=== PATIENT | male | born 1955 | race Caucasian/White ===

== ENCOUNTER → 2019-04-15 | Outpatient (CLI) | payer BC ==
[2019-04-15 14:20] LABS: African American GFR (CKD) >90 (>60 ml/min/1.73 sqM); Blood Urea Nitrogen 17 mg/dL (9-20)
--- NOTE | 2019-04-15 15:05 | CT ---
EXAMINATION TYPE: CT abdomen w con DATE OF EXAM: 04/15/2019 COMPARISON: None HISTORY: RUQ abdominal pain, burning stomach and diarrhea x [address] DLP: 1002.6 mGycm Automated exposure control for dose reduction was used. TECHNIQUE: Helical acquisition of images was performed from the lung bases through the top of iliac crest to include entire abdomen. CONTRAST: Performed with Oral Contrast and with IV Contrast, patient injected with 100 mL mL of Isovue 300. FINDINGS: LUNG BASES: No significant abnormality is appreciated. LIVER/GB: Mild diffuse intrahepatic biliary ductal dilatation and extrahepatic biliary ductal dilatat ion as detailed below. There is diffuse hypoattenuation of the hepatic parenchyma with relative spari ng of the medial left lobe near the fissure for the falciform ligament. Gallbladder is hydropic in si ze measuring 13.4 cm in longitudinal dimension. PANCREAS: There is a pancreatic head mass that is centrally cystic and measures approximately 2.6 x 2 .1 x 3.4 cm. A central cystic component measures 2.1 x 2.1 cm. The margins however are ill-defined an d there is downstream main pancreatic ductal dilatation throughout measuring up to 4 mm in the pancre atic body. There is also dilatation of the extrahepatic biliary system with common bile duct dilatati on of 1.0 cm. There is some surrounding fat stranding of the pancreatic head. There is abnormal adeno leonid with peripancreatic lymph nodes measuring 1.0 cm on image 32 and 9 mm on image 27. There is lac k of fat plane between the descending duodenum and pancreatic head. The mass abuts less than 180 degr ees of the SMV on image 35 and less than 180 degrees of the SMA on image 35. Difficult to evaluate fo r thrombus of the proximal superior mesenteric vein or portal venous confluence. Pancreatic calcifica tion from chronic pancreatitis is seen. SPLEEN: No significant abnormality is seen. ADRENALS: No significant abnormality is seen. KIDNEYS: There are bilateral nonobstructing renal calculi, approximately 4 on the left and approximat francisca 4 on the right with the largest measuring 4 mm. 2.3 cm left lower pole renal cyst is present. No hydronephrosis of either kidney. BOWEL: Diffuse wall thickening of the stomach is seen, partially related to incomplete distention. N o dilated large or small bowel. Calcified lymph node in the right lower quadrant on image 53 appears benign. Thickening of the descending duodenum and transverse duodenum is likely reactive. LYMPH NODES: Abnormal peripancreatic lymph nodes as detailed above. OSSEOUS STRUCTURES: Partial visualization of grade 1 anterolisthesis of L5 on S1 and bilateral pars intraarticularis defects. Intervertebral disc spacers seen at this level. Extensive multilevel degene rative change of the spine. Minimal retrolisthesis of L4 on L5 and L1 on L2. FREE AIR: No free air is visualized. OTHER: Abdominal aorta is of normal caliber and course. Minimal atheromatous change. IMPRESSION: 1. HIGHLY SUSPICIOUS PANCREATIC HEAD LESION. ALTHOUGH THIS IS CENTRALLY CYSTIC THERE IS HIGH SUSPICIO N FOR PANCREATIC ADENOCARCINOMA WITH CENTRAL NECROSIS THERE ARE ILL-DEFINED BORDERS AND INTRAHEPAT IC/EXTRAHEPATIC WELL MAIN PANCREATIC DUCTAL DILATATION. THERE ARE ALSO ABNORMAL PERIPANCREATIC LYMPH NODES, PERIPANCREATIC FAT STRANDING LIKELY REPRESENTING AN ACUTE COMPONENT OF PANCREATITIS, AND BOWEL WALL THICKENING OF THE ADJACENT DUODENUM THAT IS LIKELY REACTIVE. PERCUTANEOUS BIOPSY IS RECOM MENDED. 2. HYDROPIC SIZE OF THE GALLBLADDER. 3. MULTIPLE BILATERAL NONOBSTRUCTING RENAL CALCULI. A [place] level critical message alert has been initiated for Parisa Stockton MD via the [employer] Critical Results System on 04/15/2019 3:02 PM. This message alert has been sent to Parisa Stockton MD via the preferences provided by the clinician for the receipt of Radiology Critical Findings. Hochy eto e ID [id number].
== END | disposition home or self-care (01) ==
LOC: RADCTMAIN 13:10
PROVIDERS: ATTEND Internal Medicine
DX: N20.0 Calculus of kidney (principal); K82.8 Other specified diseases of gallbladder; K86.2 Cyst of pancreas; K86.89 Other specified diseases of pancreas; R93.3 Abnormal findings on diagnostic imaging of other parts of digestive tract
CPT/HCPCS: 82565; 84520; 74160; 36415; Q9967